=== PATIENT | male | born 1960 | race Caucasian/White ===

== ENCOUNTER 2018-02-03 14:16 | Emergency (ER) | payer MEDICAID ==
[~2018-02-03] VITALS: Ht 185.4 cm; Wt 90.7 kg
[2018-02-03 14:22] VITALS: BP_SYST 157
[2018-02-03] MEDS ORDERED: BACITRACIN 1 GM OINT TP ONE (14:45)
[2018-02-03] MEDS ORDERED: AMOXICILLIN/CLAVULANATE POTASSIUM 875 MG TABLET PO ONE (14:45)
[2018-02-03 15:24] VITALS: BP_SYST 157
== END 2018-02-03 15:24 | disposition home or self-care (01) ==
LOC: SED 14:16
DX: S80.01XA Contusion of right knee, initial encounter (principal); S80.811A Abrasion, right lower leg, initial encounter; R03.0 Elevated blood-pressure reading, without diagnosis of hypertension; K21.9 Gastro-esophageal reflux disease without esophagitis; Z90.49 Acquired absence of other specified parts of digestive tract; W55.82XA Struck by other mammals, initial encounter; Y93.89 Activity, other specified; Y92.89 Other specified places as the place of occurrence of the external cause; Y99.8 Other external cause status
CPT/HCPCS: 73564; 99284